=== PATIENT | female | born 2000 | race Caucasian/White ===

== ENCOUNTER 2019-04-22 17:55 | Inpatient (IN) | payer BC ==
[~2019-04-22] VITALS: Ht 162.6 cm; Wt 89.8 kg
[2019-04-22] MEDS ORDERED: ALBUTEROL0.83 MG/ML IH (18:16)
[2019-04-22] MEDS ORDERED: VENTOLIN0.09 MG IH (18:16)
[2019-04-22 19:23] LABS: BASO % 0.1 % (0.0-2.0); GRAN # 7.5 (1.4-6.5); GRAN % 85.1 % (42.2-75.2); HEMATOCRIT 44.6 % (35.0-45.0); HEMOGLOBIN 14.8 g/dl (12.0-15.0); LYMPH % 11.8 % (20.0-51.0); MEAN CELL VOLUME 85 fl (80.0-95.0); MEAN CORPUSCULAR HEMOGLOBIN 28 pg (26.0-32.0); MEAN CORPUSCULAR HGB CONC 33 g/dl (33.0-37.0); MEAN PLATELET VOLUME 9.7 fl (7.4-10.4); MONO # 0.2 (0.1-0.6); MONO % 1.9 % (1.7-9.3); PLATELET COUNT 346 K/mm3 (130-400); RED BLOOD COUNT 5.25 M/mm3 (4.10-5.30); REDCELL DISTRIBUTION WIDTH-CV 13.1 % (11.5-14.5)
[2019-04-22 19:34] LABS: ALANINE AMINOTRANSFERASE < 6 U/L (9-52); ALBUMIN 4.8 gm/dL (3.5-5.0); ALKALINE PHOSPHATASE 95 U/L (50-136); ANION GAP 14 mmol/L (7-16); AST,SGOT 18 U/L (15-37); BILIRUBIN,TOTAL 0.4 mg/dL (0.0-1.0); BLOOD UREA NITROGEN 7 mg/dL (7-17); CALCIUM 10.2 mg/dL (8.4-10.2); CARBON DIOXIDE 20 mmol/L (22-30); CHLORIDE 106 mmol/L (98-107); CREATININE, serum 0.67 (0.52-1.25); GLUCOSE 153 mg/dL (74-106); POTASSIUM 3.9 mmol/L (3.4-5.0); SODIUM 140 mmol/L (137-145)
[2019-04-22 23:03] LABS: ARTERIAL BLD GAS O2 SATURATION 94.9 % (92-100); ARTERIAL BLOOD GAS BASE EXCESS -2.8 (-2-2); ARTERIAL BLOOD GAS HCO3 18.2 meq/L (22-26); ARTERIAL BLOOD GAS PCO2 23.6 mmHg (35-45); ARTERIAL BLOOD GAS PO2 70.2 mmHg (80-100); ARTERIAL BLOOD GAS pH 7.51 (7.35-7.45)
[2019-04-22] MEDS ORDERED: NORTREL 35 MCG-1 TAB PO (23:09)
[2019-04-22] MEDS ORDERED: ALLEGRA 180MG180 MG PO (23:10)
[2019-04-22] MEDS ORDERED: 00186-0372-20 IH (23:11)
[2019-04-22] MEDS ORDERED: CELEXA 20MG20 MG/TAB PO (23:11)
[2019-04-22 23:55] VITALS: BP 151/87; PULSE 104; TEMP 97.6
[2019-04-22 23:57] VITALS: BP 151/87; PULSE 104; TEMP 97.6
--- NOTE | 2019-04-22 23:59 | NUR ---
Arrived to medical floor. Assessment complete. Patient has audible wheezing present. Contacted respiratory for breathing treatment. Patient orientated to medical floor. All questions answered. IV fluids started as ordered. Denies other needs. Call light in reach.
--- NOTE | 2019-04-23 02:13 | NUR ---
Resting in bed. Breathing improving. Denies needs. Call light in reach.
--- NOTE | 2019-04-23 04:31 | NUR ---
Requested breathing tx for increased WOB. Contacted respiratory.
[2019-04-23 05:06] VITALS: BP 143/73; PULSE 115; TEMP 98.3
[2019-04-23 05:36] LABS: BASO % 0.1 % (0.0-2.0); GRAN # 10.8 (1.4-6.5); GRAN % 90.7 % (42.2-75.2); HEMATOCRIT 40.6 % (35.0-45.0); HEMOGLOBIN 13.5 g/dl (12.0-15.0); LYMPH # 0.9 (1.2-3.4); LYMPH % 7.1 % (20.0-51.0); MEAN CELL VOLUME 85 fl (80.0-95.0); MEAN CORPUSCULAR HEMOGLOBIN 28 pg (26.0-32.0); MEAN CORPUSCULAR HGB CONC 33 g/dl (33.0-37.0); MEAN PLATELET VOLUME 10.2 fl (7.4-10.4); MONO # 0.2 (0.1-0.6); MONO % 1.4 % (1.7-9.3); PLATELET COUNT 249 K/mm3 (130-400); REDCELL DISTRIBUTION WIDTH-CV 13.2 % (11.5-14.5)
[2019-04-23 05:57] LABS: LYMPHOCYTE 7 % (20.0-51.0); NEUTROPHILS 92 % (42.0-75.2); PLATELET ESTIMATE NORMAL (NORMAL)
[2019-04-23 05:58] LABS: CALCIUM 9.5 mg/dL (8.4-10.2); CREATININE, serum 0.56 (0.52-1.25); POTASSIUM 3.8 mmol/L (3.4-5.0)
--- NOTE | 2019-04-23 06:02 | NUR ---
Patient required x2 PRN breathing treatments throughout night for shortness of breath. Patient stated benadryl given last night "helped alot." Denies needs this AM. Father at bedside.
--- NOTE | 2019-04-23 07:05 | NUR ---
Report given to KELSEA Handy
--- NOTE | 2019-04-23 07:51 | NUR ---
Pt assessment complete. Pt is sleeping in bed upon entry, she is A/O x3. Pt is tachypneic, reports SOB. Currently on 2L O2 via NC. Pt requesting breathing treatment at this time, RT notified. Pt denies any pain. No N/V. IV fluids infusing without complications. No needs at this time, family at bedside. Call light within reach.
[2019-04-23 08:20] VITALS: BP 150/79; PULSE 97; TEMP 98.2
--- NOTE | 2019-04-23 10:06 | NUR ---
SW's met with the patient, the patient's father (Antonio ph#[phone]), and her grandparents to discuss discharge plan. 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 She reports independence with ADLs and does not have any DME. The patient receives primary care at [facility] and she receives her medications at [facility] or at the [facility]. She reports no difficulties obtaining his meds. DYLAN contacted and notified the Office of Student Life at [employer] of the patient's hospitalization. The patient plans to return back home upon discharge. No additional needs at this time.
--- NOTE | 2019-04-23 10:13 | NUR ---
Initial visit; Patient and family thanked Dementia Program Director for looking in on her and offering God's blessings and a get well message.
[2019-04-23 10:48] LABS: ARTERIAL BLD GAS O2 SATURATION 96.6 % (92-100); ARTERIAL BLD GAS TCO2 CT 17.9; ARTERIAL BLOOD GAS HCO3 17.2 meq/L (22-26); ARTERIAL BLOOD GAS PO2 87.2 mmHg (80-100); ARTERIAL BLOOD GAS pH 7.49 (7.35-7.45)
[2019-04-23 12:47] VITALS: BP 143/65; PULSE 107; TEMP 97.9
[2019-04-23 15:53] VITALS: BP 136/70; PULSE 115; TEMP 97.7
--- NOTE | 2019-04-23 19:11 | NUR ---
Pt showed some improvement through the day. Seems to have less use of accessory muscles and decreased work of breathing. Pt states she feels better. Continues on 2L O2 via NC. POC discussed with patient, in agreeance to have decreased activity with oxygen needs and increase in SOB. Pt was very SOB with transition of bed to wheelchair and back. Pt verbalizes understanding. Sitting up in bed eating dinner at this time. Call light within reach.
--- NOTE | 2019-04-23 19:23 | NUR ---
Resting in bed. Assessment complete. Patient diaphoretic. Wheezing on inspiration. Temp 98.1 axillay. Denies shortness of breath. Denies pain at this time. Respiratory will be in to see patient. INT left and right wrist flush without complications. Call light in reach.
[2019-04-23 20:12] VITALS: BP 136/74; PULSE 100; TEMP 98.1
--- NOTE | 2019-04-23 21:00 | NUR ---
Assisted with bed bath and linen change. Patient short of breath with movement. Resolved with resting. Denies other needs. Call light in reach.
[2019-04-23 23:36] VITALS: BP 133/71; PULSE 118; TEMP 98.2
--- NOTE | 2019-04-24 01:00 | NUR ---
Resting in bed. Denies needs. Call light in reach.
[2019-04-24 03:46] VITALS: BP 153/66; PULSE 86; TEMP 97.9
--- NOTE | 2019-04-24 04:00 | NUR ---
Resting in bed. Denies needs. Call light in reach.
--- NOTE | 2019-04-24 06:27 | NUR ---
Patient had uneventful night. Breathing treatments done as schedule with respiratory. No reports of increased work of breathing. Resting in bed with father at bedside this AM. Requested PRN duoneb to be given this AM for tightness. Contacted respiratory. Denies other needs at this time. Call light in reach.
[2019-04-24 06:50] LABS: BASO % 0.2 % (0.0-2.0); GRAN # 17.5 (1.4-6.5); GRAN % 89.3 % (42.2-75.2); HEMOGLOBIN 13.4 g/dl (12.0-15.0); LYMPH # 1.3 (1.2-3.4); LYMPH % 6.8 % (20.0-51.0); MEAN CELL VOLUME 86 fl (80.0-95.0); MEAN CORPUSCULAR HEMOGLOBIN 28 pg (26.0-32.0); MEAN CORPUSCULAR HGB CONC 33 g/dl (33.0-37.0); MEAN PLATELET VOLUME 10.1 fl (7.4-10.4); MONO # 0.5 (0.1-0.6); MONO % 2.5 % (1.7-9.3); RED BLOOD COUNT 4.79 M/mm3 (4.10-5.30); REDCELL DISTRIBUTION WIDTH-CV 13.6 % (11.5-14.5)
[2019-04-24 06:53] LABS: PLATELET COUNT 436 K/mm3 (130-400)
[2019-04-24 07:07] LABS: CALCIUM 9.3 mg/dL (8.4-10.2); CREATININE, serum 0.65 (0.52-1.25); POTASSIUM 4.2 mmol/L (3.4-5.0)
--- NOTE | 2019-04-24 07:24 | NUR ---
Report given to KELSEA Mcdaniel
--- NOTE | 2019-04-24 08:30 | NUR ---
ASSISTED PATIENT IN WALKING AROUND THE HALLS WITH O2 AND MASK ON D/T DROPLEY PRECAUTIONS. PT DOES BECOME DYSPNEIC WITH MINIMAL EXERTION. PT TOLERATED WELL. ABLE TO WEAN PT TO 1L NC AFTER RESTING IN RECLINER BRIEFLY AFTER WALK.
[2019-04-24 08:49] VITALS: BP 147/70; PULSE 109; TEMP 97.9
--- NOTE | 2019-04-24 09:00 | NUR ---
PT STATES HER IV TO RIGHT WRIST IS VERY SORE. PT HAS PERIPHERAL IV TO LEFT WRIST. NO NEED FOR TWO IVS. IV TO RIGHT WRIST REMOVED. PT TOLERATED WELL.
--- NOTE | 2019-04-24 11:00 | NUR ---
ABLE TO WEAN PATIENT TO ROOM AIR WHILE SHE IS RESTING. MAY NEED O2 WHILE AMBULATING.
[2019-04-24 11:34] VITALS: BP 140/72; PULSE 94; TEMP 97.5
--- NOTE | 2019-04-24 12:20 | NUR ---
PT REPORTS THAT SHE IS BEGINNING TO HAVE SOME CHEST TIGHTNESS AND WHEEZING. PT DUE FOR HER SOLUMEDROL IV. PT'S NEXT BREATHING TREATMENT NOT UNTIL 1400. NATALY IN CARDIOPULMONARY CALLED TO HAVE HER ADMINISTER ALBUTEROL PRN TREATMENT.
--- NOTE | 2019-04-24 15:15 | NUR ---
PT FINALLY SLEEPING
[2019-04-24 15:47] VITALS: BP 139/53; PULSE 85; TEMP 98.8
[2019-04-24 19:17] VITALS: BP 181/85; PULSE 85; TEMP 97.6
--- NOTE | 2019-04-24 20:30 | NUR ---
Initial shift assessment done- denies pain, some SOB with exertion, wearing o2 at 2L/nc, sats 97%, lung sounds wheezes insp and exp throughout, droplet isolation- some family in room visiting, no requests
[2019-04-25] VITALS (7 sets, daily range): BP systolic 143–177; BP diastolic 64–90; PULSE 63–107; TEMP 97.3–97.9
--- NOTE | 2019-04-25 01:31 | NUR ---
PATIENT STARTED TX WITH HR OF 81 BPM. WITH THE BAN NEB, SHE WAS USING ALOT OF EFFORT TO DRAM THE MED IN AND I NOTICED A HR INCREASE UP TO 122. I TURNED THE NEB TO CONTINUOUS AND HAD HER BREATH NORMALLY WITH THE TX. IN DOING SO, HER HR DROPPED DOWN TO 90. AFTER HER TREATMENT, I CONTINUED MONITORING HER HR AND IT WAS DOWN TO THE 90 RANGE. I THEN TOLD HER TO COUNT TO 20 OUT LOUD AND HER HR INCREASED TO 130. I LET IT GO BACK TO THE 90 RANGE AND HAD HER DO HER PEAK FLOW AND HER HR WENT UP TO 132 BPM. I NOTIFIED THE NURSE ABOUT THIS GARY RANKIN CRT CPFT
--- NOTE | 2019-04-25 07:00 | NUR ---
States feeling better this morning- did get some sleep - last B/P 152/90
[2019-04-25 07:18] LABS: BASO % 0.2 % (0.0-2.0); GRAN # 16.2 (1.4-6.5); GRAN % 86.8 % (42.2-75.2); HEMATOCRIT 42.6 % (35.0-45.0); HEMOGLOBIN 13.7 g/dl (12.0-15.0); LYMPH # 1.6 (1.2-3.4); LYMPH % 8.3 % (20.0-51.0); MEAN CELL VOLUME 87 fl (80.0-95.0); MEAN CORPUSCULAR HEMOGLOBIN 28 pg (26.0-32.0); MEAN CORPUSCULAR HGB CONC 32 g/dl (33.0-37.0); MEAN PLATELET VOLUME 10.3 fl (7.4-10.4); MONO # 0.6 (0.1-0.6); MONO % 3.4 % (1.7-9.3); PLATELET COUNT 485 K/mm3 (130-400); RED BLOOD COUNT 4.89 M/mm3 (4.10-5.30); REDCELL DISTRIBUTION WIDTH-CV 13.7 % (11.5-14.5)
[2019-04-25 07:27] LABS: CALCIUM 9.3 mg/dL (8.4-10.2); CREATININE, serum 0.68 (0.52-1.25); POTASSIUM 4.3 mmol/L (3.4-5.0)
--- NOTE | 2019-04-25 08:27 | NUR ---
Pt alert and oriented. Pt able to take off oxygen this am and keep saturations above 90%. Pt has SOB with minimal activity. Pt lungs has insp/exp wheezes noted. Pt IV patent no redness or infiltration noted. Pt denies pain at this time. Pt has family at bedside. Pt has call light in reach and remains on droplet precautions. Pt denies needs at this time.
--- NOTE | 2019-04-25 14:22 | NUR ---
Pt has discharge orders and social work is in contact with [facility] to accept and transfer pt. Daughter is upset that discharge is taking so long. This nurse asked Tamela addiction social worker to go and speak with the family about discharge and [place] paperwork that was requested this am. Tamela spoke to pt this am and daughter was not present but states she will go back and speak to her now. Pt has call light inreach and denies needs at this time.
--- NOTE | 2019-04-25 15:55 | NUR ---
Pt taken down to [place] and returned without issue via wheelchair and pt has mask on for droplet precautions. Pt sitting in lobby with family and and mask on. Pt remains on room air without increased SOB reported or noted.
--- NOTE | 2019-04-25 18:55 | NUR ---
Pt report given to Abbey ENAMORADO.
--- NOTE | 2019-04-25 20:50 | NUR ---
Patient assessed at this time. Alert and oriented x 4, and able to make needs known. Denies having pain and discomfort, except to IV site to left wrist. Site flushed. Site is without redness, warmth, and swelling. Wrapped with coban for protection, and stated it helped. Denies having SOB and exertion at rest, but does with exertion. LS inspiratory and expiratory wheezes throughout. Oxygen level 98% RA. Respirations even and unlabored. HRR. Capillary refill less than 3 seconds. Non-tenting skin turgor. BSAx4. Abdomen soft and non-tender. No edema. Resting in bed watching TV. Call light is within reach. Voices no questions, needs, or concerns at this time.
[2019-04-26 03:32] VITALS: BP 149/73; PULSE 63; TEMP 97.5
--- NOTE | 2019-04-26 04:27 | NUR ---
Patient has been denying having pain and discomfor. Has been wearing oxygen at 1 L/min via NC as request for SOB. Oxygen level had been 95%. Continues on IV Solu-Medrol per orders. Voices no questions, needs, or concerns. Resting in bed with call light within reach.
--- NOTE | 2019-04-26 05:44 | NUR ---
Patient reports she took oxygen off around 0400. States that she is feeling ok at this time, and denies needing oxygen, or having feelings of shortness of breath or dyspnea. Voices no questions, needs, or concerns at this time. Call light is within reach.
[2019-04-26 05:57] LABS: HEMATOCRIT 42.7 % (35.0-45.0); HEMOGLOBIN 14.1 g/dl (12.0-15.0); MEAN CELL VOLUME 85 fl (80.0-95.0); MEAN CORPUSCULAR HEMOGLOBIN 28 pg (26.0-32.0); MEAN CORPUSCULAR HGB CONC 33 g/dl (33.0-37.0); MEAN PLATELET VOLUME 9.8 fl (7.4-10.4); PLATELET COUNT 452 K/mm3 (130-400); RED BLOOD COUNT 5.01 M/mm3 (4.10-5.30); REDCELL DISTRIBUTION WIDTH-CV 13.2 % (11.5-14.5)
[2019-04-26 06:07] LABS: CALCIUM 9.1 mg/dL (8.4-10.2); CREATININE, serum 0.66 (0.52-1.25); POTASSIUM 4.3 mmol/L (3.4-5.0)
[2019-04-26 06:22] LABS: LYMPHOCYTE 15 % (20.0-51.0); MYELOCYTE 2 % (0-0); NEUTROPHILS 79 % (42.0-75.2); PLATELET ESTIMATE INCREASED (NORMAL)
[2019-04-26 07:50] VITALS: BP 141/68; PULSE 72; TEMP 97.3
--- NOTE | 2019-04-26 07:51 | NUR ---
PT ALERT AND ORIENTED. PT HAS SOB WITH MINIMAL EXERTION BUT REMAINS ON ROOM AIR THIS AM. PT REMAINS ON DROPLET PRECAUTIONS. PT HAS FAMILY AT BEDSIDE. PT DENIES NEEDS THIS AM AND HAS CALL LIGHT IN REACH. PT CONTINUES ON IV STEROID AND ABX ORDERED.
[2019-04-26 13:12] VITALS: BP 131/67; PULSE 64; TEMP 97.7
--- NOTE | 2019-04-26 15:26 | NUR ---
Pt assisted to ambulate in the hallway with mask in place for droplet precautions. Pt able to ambulate 25ft and then needed to rest. Pt recovered quickly in wheelchair and then ambulated another 10ft to room. Pt SOB upon return to room and oxygen saturation was 98% on room air. Pt denies pain at this time. Pt had just had BT before ambulation in hallway.
[2019-04-26 17:26] VITALS: BP 142/78; PULSE 55; TEMP 97.6
--- NOTE | 2019-04-26 19:18 | NUR ---
Pt report given to Brigitte ENAMORADO.
--- NOTE | 2019-04-26 21:05 | NUR ---
Pt sitting up in bed. No distress noted. Pt asked for IV to be removed. Pt educated that she has to have an IV site while in the hospital. Pt becomes tearful. Reassured. Respirations are even and unlabored. Wheezes ausultated throughout lung romero. 98% on RA. Abdomen soft, nontender. BS+. Pt set up to take a shower. No other needs noted. Will continue to monitor.
[2019-04-26 21:36] VITALS: BP 134/71; PULSE 77; TEMP 97.6
[2019-04-27 00:44] VITALS: BP 131/74; PULSE 63; TEMP 97.6
[2019-04-27 04:31] VITALS: BP 147/69; PULSE 59; TEMP 98.1
--- NOTE | 2019-04-27 05:15 | NUR ---
Pt reports sleeping well last night. No distress noted. Respirations are even and unlabored. VSS. No needs noted.
[2019-04-27 05:45] LABS: HEMATOCRIT 42.2 % (35.0-45.0); HEMOGLOBIN 13.7 g/dl (12.0-15.0); MEAN CELL VOLUME 85 fl (80.0-95.0); MEAN CORPUSCULAR HEMOGLOBIN 28 pg (26.0-32.0); MEAN CORPUSCULAR HGB CONC 33 g/dl (33.0-37.0); MEAN PLATELET VOLUME 9.8 fl (7.4-10.4); PLATELET COUNT 391 K/mm3 (130-400); RED BLOOD COUNT 4.97 M/mm3 (4.10-5.30); REDCELL DISTRIBUTION WIDTH-CV 13.1 % (11.5-14.5)
[2019-04-27 06:29] LABS: HYPOCHROMIA 1+; LYMPHOCYTE 26 % (20.0-51.0); NEUTROPHILS 68 % (42.0-75.2); PLATELET ESTIMATE NORMAL (NORMAL)
--- NOTE | 2019-04-27 07:00 | NUR ---
Report received from KELSEA Briggs. PT in bed resting, denies needs, no 02 needed will continue to monitor.
[2019-04-27] MEDS ORDERED: SINGULAIR 110 MG/TAB PO (07:15)
[2019-04-27 08:00] VITALS: BP 137/73; PULSE 84; TEMP 98.7
[2019-04-27] MEDS ORDERED: PREDNISONE20 MG PO (08:49)
--- NOTE | 2019-04-27 09:00 | NUR ---
Assessment charted. Pt in bed resting, significant other at bedside, states she feels very well. Denies needs, INT to LW. Wants to discharge today, will continue to monitor.
[2019-04-27] MEDS ORDERED: 00186-0370-20 IH (09:44)
[2019-04-27] MEDS ORDERED: SPIRIVA RE2.5 MCG/Ac IH (09:44)
--- NOTE | 2019-04-27 12:28 | NUR ---
Discharge teaching completed at this time. INT dc'd, tip intact. Pt received dishcarge packet, reviewed scripts sent to pharmacy, f/u appointments, work/school note. Answered all questions. Pt escorted out by myself, left with all bleongings, significant other to drive home, criteria met.
== END 2019-04-27 11:58 | disposition home or self-care (01) | DRG 202 ==
LOC: COL.ER 17:55 → MEDICAL 18:25
PROVIDERS: Physician Assistant
DX: J45.41 Moderate persistent asthma with (acute) exacerbation (principal); E87.3 Alkalosis; E87.2 Acidosis; B97.89 Other viral agents as the cause of diseases classified elsewhere; B97.10 Unspecified enterovirus as the cause of diseases classified elsewhere; D72.829 Elevated white blood cell count, unspecified; T38.0X5A Adverse effect of glucocorticoids and synthetic analogues, initial encounter; F41.9 Anxiety disorder, unspecified; R09.02 Hypoxemia; J06.9 Acute upper respiratory infection, unspecified; J32.9 Chronic sinusitis, unspecified; Z79.51 Long term (current) use of inhaled steroids
CPT/HCPCS: 99231-AI; 99232-AI; 99239; J2920; J3475; J7120; J7512